=== PATIENT | male | born 1945 | race Two or more races ===

== ENCOUNTER 2024-12-24 13:24 | Outpatient (RCR) | payer MEDICARE, OTHER, SELFPAY | END 2024-12-24 23:59 | disposition home or self-care (01) | LOC: CRHB 13:24 | PROVIDERS: ATTENDING PHYSICIAN Internal Medicine Cardiovascular Disease; FAMILY PHYSICIAN Family Medicine | DX: I25.10 Atherosclerotic heart disease of native coronary artery without angina pectoris (principal); Z95.2 Presence of prosthetic heart valve; Z95.1 Presence of aortocoronary bypass graft; Z95.0 Presence of cardiac pacemaker; I10 Essential (primary) hypertension; E78.00 Pure hypercholesterolemia, unspecified | CPT/HCPCS: 93797; 93798 ==

== ENCOUNTER 2025-01-24 14:10 | Outpatient (RCR) | payer OTHER, SELFPAY | END 2025-01-24 23:59 | disposition home or self-care (01) | LOC: CRHB 14:10 | PROVIDERS: ATTENDING PHYSICIAN Internal Medicine Cardiovascular Disease; FAMILY PHYSICIAN Family Medicine | DX: I25.10 Atherosclerotic heart disease of native coronary artery without angina pectoris (principal); Z95.1 Presence of aortocoronary bypass graft; Z95.4 Presence of other heart-valve replacement | CPT/HCPCS: 93797; 93798 ==

== ENCOUNTER 2025-02-09 10:55 | Outpatient (RCR) | payer OTHER, SELFPAY ==
[2025-02-01 08:58] LABS: HDL Cholesterol 38 mg/dl; LDL Cholesterol, Calculated 80 mg/dl; Very Low Density Lipoprotein 31 mg/dl (0-30)
== END 2025-02-09 14:57 | disposition home or self-care (01) ==
LOC: CRHB 10:55
PROVIDERS: ATTENDING PHYSICIAN Internal Medicine Cardiovascular Disease; FAMILY PHYSICIAN Family Medicine; REFERRING PHYSICIAN Nurse Practitioner
DX: I25.10 Atherosclerotic heart disease of native coronary artery without angina pectoris (principal); Z95.2 Presence of prosthetic heart valve; Z95.1 Presence of aortocoronary bypass graft; I12.9 Hypertensive chronic kidney disease with stage 1 through stage 4 chronic kidney disease, or unspecified chronic kidney disease; E78.00 Pure hypercholesterolemia, unspecified; Z95.0 Presence of cardiac pacemaker; N18.9 Chronic kidney disease, unspecified
CPT/HCPCS: 80061; 93797; 93798